=== PATIENT | female | born 1970 | race Caucasian/White ===

== ENCOUNTER 2020-04-27 05:28 | Emergency (ER) | payer OTHER ==
[~2020-04-27] VITALS: Ht 170.2 cm; Wt 68.0 kg
--- NOTE | 2020-04-27 05:35 | NUR ---
PT [facility] AND [employer] FOR BIZARRE BEHAVIOR. PT REFUSES TO ANSWER QUESTIONS, CRYING, SPITTING, AND ACTING AGGRESSIVELY TOWARD STAFF. BLOOD SAMPLE OBTAINED AND SENT TO LAB. PT ATTACHED TO MONITOR AND POX. PT GIVEN BLANKET AND CALL LIGHT WITHIN REACH. WILL CONTINUE TO MONITOR.
[2020-04-27] MEDS ORDERED: HALOPERIDOL LACTATE INJ 5 MG/ML VIAL ONE (05:40)
[2020-04-27] MEDS ORDERED: HALOPERIDOL LACTATE INJ 5 MG/ML VIAL IM ONE (06:00)
--- NOTE | 2020-04-27 06:12 | NUR ---
ATTEMPTED TO OBTAIN URINE. PT UNCOOPERATIVE WITH USING THE BEDPAN. PT ATTEMPTED TO THROW BEDPAN AT STAFF
[2020-04-27] MEDS ORDERED: LORAZEPAM INJ 2 MG/ML VIAL IM ONE (06:30)
[2020-04-27] MEDS ORDERED: LORAZEPAM INJ 2 MG/ML VIAL ONE (06:32)
[2020-04-27 06:44] LABS: CALCIUM, SERUM 9.5 mg/dL (8.5-10.1); CARBON DIOXIDE 21 mmol/L (21-32); CHLORIDE 107 mmol/L (98-107); CREATININE 1.4 mg/dL (0.6-1.3); GLUCOSE 197 mg/dL (74-106); POTASSIUM 4.1 mmol/L (3.5-5.1); SODIUM SERUM 145 mmol/L (136-145); UREA NITROGEN, BLOOD 14 mg/dL (7-18)
[2020-04-27 06:49] LABS: ALANINE AMINOTRANSFERASE 22 U/L (12-78); ALKALINE PHOSPHATASE 58 U/L (46-116); ASPARTATE AMINOTRANSFERASE 27 U/L (15-37); BILIRUBIN,DIRECT 0.1 mg/dL (0.0-0.2); BILIRUBIN,TOTAL 0.3 mg/dL (0.2-1.0); TOTAL PROTEIN, SERUM 7.7 g/dL (6.4-8.2)
[2020-04-27 06:52] LABS: BASOPHILS # (AUTO) 0.1 /CMM (0.0-0.2); BASOPHILS % (AUTO) 0.9 % (0.0-2.0); EOSINOPHILS % (AUTO) 0.8 % (0.0-6.0); HEMATOCRIT 42 % (33-45); HEMOGLOBIN 13.8 g/dL (11.5-14.8); LYMPHOCYTES # (AUTO) 4.9 /CMM (0.8-4.8); LYMPHOCYTES % (AUTO) 31.9 % (20.0-44.0); MEAN CORPUSCULAR HGB CONC 33 g/dl (31.0-36.0); MEAN CORPUSCULAR VOLUME 98 fL (82-100); MONOCYTES # (AUTO) 1.5 /CMM (0.1-1.30); MONOCYTES % (AUTO) 9.9 % (2.0-12.0); NEUTROPHILS # (AUTO) 8.6 /CMM (1.8-8.9); NEUTROPHILS % (AUTO) 56.5 % (43.0-81.0); PLATELET COUNT (AUTO) 342 /CMM (150-450); RED BLOOD CELL COUNT(AUTO) 4.25 MIL/uL (4.0-5.2); WHITE BLOOD COUNT (AUTO) 15.3 K/uL (4.3-11.0)
[2020-04-27 06:54] LABS: ACETAMINOPHEN 0 ug/ml (10-30); ALCOHOL, BLOOD < 3 mg/dL (0-0)
[2020-04-27 06:57] LABS: THYROID STIMULATING HORMONE 3.487 uIU/mL (0.358-3.74)
--- NOTE | 2020-04-27 06:57 | NUR ---
URINE COLLECTED, CALLED LAB FOR WOOD PATTERNMAKER
[2020-04-27 07:13] LABS: BILIRUBIN,URINE NEGATIVE (NEGATIVE); COLOR,URINE YELLOW (YELLOW); LEUKOCYTE ESTERASE ,URINE NEGATIVE (NEGATIVE); NITRITE, URINE NEGATIVE (NEGATIVE); PROTEIN,URINE NEGATIVE (NEGATIVE); UGLUCOSE NEGATIVE (NEGATIVE); UROBILINOGEN,URINE 0.2 EU/dL (0.2)
--- NOTE | 2020-04-27 07:36 | NUR ---
ENDORSED PEDRO PABLO TO RY HICKS
--- NOTE | 2020-04-27 11:01 | NUR ---
PATIENT ASLEEP, AROUSABLE BUT ONLY MOANING AND GRUMBLING WORDS. UNABLE TO ENGAGE IN A CONVERSATION. VITALS STABLE AT THIS TIME. WILL CONTINUE TO MONITOR.
--- NOTE | 2020-04-27 11:15 | NUR ---
SW attempted to see pt. for drug use & bizarre behavior. However, pt. is asleep. Pt. has been medicated for stabilization. SW to be notified by nursing staff if pt. is awake and interviewable. SW will be available as needed.
--- NOTE | 2020-04-27 12:08 | NUR ---
LAB CALLED PT COVID RESULT NEGATIVE (-)
--- NOTE | 2020-04-27 13:00 | NUR ---
PATIENT STILL IN BED ASLEEP, VSS, AROUSABLE TO STIMULI BUT WOULD GO BACK TO SLEEP. NO DISTRESS NOTED.
--- NOTE | 2020-04-27 17:50 | NUR ---
PATIENT AWAKE ALERT AND ORIENTED X4, VERBALLY RESPONSIVE. PROVIDED FOOD TRAY. CALM AND COOPERATIVE. NO DISTRESS NOTED. NEEDS ATTENDED.
--- NOTE | 2020-04-27 18:08 | NUR ---
CALLED [facility] [employer] [facility] DIANE RAZA, ETA 1 HOUR
--- NOTE | 2020-04-27 19:46 | NUR ---
SEEN AND EVALUATED BY DIANE [facility] DESIGNER AND PATTERNMAKER.
--- NOTE | 2020-04-27 20:20 | NUR ---
[facility] CALLED FOR PATIENT.
--- NOTE | 2020-04-27 20:36 | NUR ---
Patient discharged to home in stable condition. Written and verbal after care instructions given. Patient verbalizes understanding of instruction.
[2020-04-27 22:51] VITALS: BP 133/82
== END 2020-04-27 20:36 | disposition home or self-care (01) ==
LOC: ER 05:35
DX: T43.621A Poisoning by amphetamines, accidental (unintentional), initial encounter (principal); Y92.89 Other specified places as the place of occurrence of the external cause; F14.10 Cocaine abuse, uncomplicated; Z20.822 Contact with and (suspected) exposure to COVID-19
CPT/HCPCS: 36415; 80048; 80076; 80299; 80307; 80320; 81003; 84443; 84703; 85025; 87426; 96372 ×2; 99285; C9803; J1630; J2060; G0480